=== PATIENT | male | born 1970 | race Caucasian/White ===

== ENCOUNTER 2025-05-05 01:15 | Observation (INO) | payer OTHER, SELFPAY ==
[2025-05-04] VITALS (14 sets, daily range): BP systolic 64–90; BP diastolic 43–58; BMI 30.2
--- NOTE | 2025-05-04 20:36 | EDRN ---
Pt was making a sandwich and passed out in the kitchen then heard his yell 'what are you doing on the floor and why is there blood on your chin?' Pt sustained laceration to L chin. Pt thinks he was 'out' for about 1 minute. Pt feels his
vision is a little blurred. No headache, n/v, fever/chills. Pt has a cough from cold he had last week. Pt has hx POTS but says he has never passed out completely. Pt says 'I feel fine.'
--- NOTE | 2025-05-04 20:49 | EDRN ---
Pt says he has never officially been diagnosed with POTS. Pt was treated for htn many years ago with medications. Pt has lost weight recently and expressed concern that pt may need his bp medication adjusted.
[2025-05-04 20:54] LABS: Hematocrit 39.8 % (39.0-52.0); Hemoglobin 13.3 g/dL (13.0-18.0); Mean Corp Hgb Conc. 33.4 g/dL (33.0-37.0); Mean Corpuscular Volume 88.4 fL (80.0-94.0); Nucleated Red Blood Cells % 0 % (-); Platelet Count 241 10^3/uL (130-400); Red Cell Dist. Width 12.4 % (11.5-14.5)
[2025-05-04] MEDS: NSS 1000 IV ×2 (20:54→21:51)
--- NOTE | 2025-05-04 20:57 | EDRN ---
Pt adds he drank a few beers tonight and smoked marijuana
--- NOTE | 2025-05-04 21:12 | ED.GENMED ---
History of Present Illness
<JOHN Boston - Last Filed: 05/04/25 23:30>
General
Chief Complaint: Fainting/Passed Out
Source: patient
Exam Limitations: none
Time Seen by Provider: 05/04/25 20:49
Nursing documentation reviewed up to this point in time: agreed with except (Patient with no formal diagnosis of POTS)
History of Present Illness
History of Present Illness:
54-year-old male with past medical history of hypertension hyperlipidemia diabetes presents to the ER for evaluation. Patient apparently had a syncopal episode and heard him fall and found him on the floor with a laceration to his chin.
Patient presents hypotensive. He reports that he has a history of hypertension however has lost a lot of weight over the past 6 to 9 months being on a GLP-1 (approx 40 lbs).
He also states that today he smoked marijuana and had several strong beers. He remembers standing at the refrigerator to try to get something to eat but does not recall feeling dizzy or lightheaded.
He denies headache now .
He does report recently he has noticed that when he bends over to get something he will feel lightheaded and dizzy.
He is on 4 blood pressure medicines including amlodipine, hydrochlorothiazide losartan spironolactone. He is a diabetic and takes Metformin. He admits to not eating today prior to drinking beer.
Phy Exam
<JOHN Boston - Last Filed: 05/04/25 23:30>
General Physical Exam
General Presentation: no apparent distress
General age: appears stated age
General Skin: warm and dry
General Habitus: normal
General Mental: alert
General Hydration: appears well hydrated
ENT Exam
ENT Exam: EOMI and other (Patient with 4 cm linear horizontally situated laceration thru to subcutaneous tissue)
Cardiovascular Exam
Cardiovascular Exam: no murmur and tachycardia
Pulmonary Exam
Pulmonary Exam: lungs clear and no respiratory distress
Neurological Exam
Neurological Exam: alert and oriented x3
Musculoskeletal Exam
Musculoskeletal Exam: full ROM
Skin Exam
Skin Exam: normal color and warm/dry
Psychiatric Exam
Psychiatric Exam: normal mood/affect
Course
<JOHN Boston - Last Filed: 05/04/25 23:30>
Orders/Labs/Results
Orders:
Orders
05/04/25 20:13
EKG [Electrocardiogram (*1)] Urgent
Reason for Study: Syncope
EKG- Treatment ONCE
05/04/25 20:46
Complete Blood Count/With Diff Urgent
Comprehensive Metabolic Panel Urgent
05/04/25 20:54
0.9% Sodium Chloride 1000 ml [Nss] 1,000 ml IV BOLUS
05/04/25 21:24
CT Cervical Spine W/o Iv Contr Urgent
Comment:
Reason For Exam: trauma
CT Head W/o Iv Contrast Urgent
Comment:
Reason For Exam: trauma
Tetanus/Diphth/Acelpertussis [Adacel] 0.5 ml IM .ONCE ONE
05/04/25 21:49
0.9% Sodium Chloride 1000 ml [Nss] 1,000 ml IV BOLUS
Abnormal Lab Results
05/04/25
20:46
RBC 4.50 L 10^6/uL
(4.70-6.10)
Absolute Monos (auto) 0.7 H 10^3/uL
(0.1-0.6)
BUN 24 H mg/dl
(9-20)
Creatinine 1.4 H mg/dL
(0.7-1.3)
Glucose 136 H mg/dl
(70-99)
05/04/25 20:46
05/04/25 20:46
Vital Signs
Initial and Last Documented VS:
Initial Vital Signs
Temp Pulse Resp BP Pulse Ox
98.5 F 106 16 64/43 97
05/04/25 20:20 05/04/25 20:20 05/04/25 20:20 05/04/25 20:20 05/04/25 20:20
Last Documented Vital Signs
Temp Pulse Resp BP Pulse Ox
98.5 F 101 22 82/54 92
05/04/25 20:20 05/04/25 22:30 05/04/25 22:30 05/04/25 22:30 05/04/25 22:15
Mainframe Programmer consulted with Physician
Mainframe Programmer consulted with physician?: Yes
Name of Physician Consulted: MONIE
<Dov Bunch MD - Last Filed: 05/04/25 23:34>
Orders/Labs/Results
Orders:
Orders
05/04/25 20:13
EKG [Electrocardiogram (*1)] Urgent
Reason for Study: Syncope
EKG- Treatment ONCE
05/04/25 20:46
Complete Blood Count/With Diff Urgent
Comprehensive Metabolic Panel Urgent
05/04/25 20:54
0.9% Sodium Chloride 1000 ml [Nss] 1,000 ml IV BOLUS
05/04/25 21:24
CT Cervical Spine W/o Iv Contr Urgent
Comment:
Reason For Exam: trauma
CT Head W/o Iv Contrast Urgent
Comment:
Reason For Exam: trauma
Tetanus/Diphth/Acelpertussis [Adacel] 0.5 ml IM .ONCE ONE
05/04/25 21:49
0.9% Sodium Chloride 1000 ml [Nss] 1,000 ml IV BOLUS
Abnormal Lab Results
05/04/25
20:46
RBC 4.50 L 10^6/uL
(4.70-6.10)
Absolute Monos (auto) 0.7 H 10^3/uL
(0.1-0.6)
BUN 24 H mg/dl
(9-20)
Creatinine 1.4 H mg/dL
(0.7-1.3)
Glucose 136 H mg/dl
(70-99)
05/04/25 20:46
05/04/25 20:46
Vital Signs
Initial and Last Documented VS:
Initial Vital Signs
Temp Pulse Resp BP Pulse Ox
98.5 F 106 16 64/43 97
05/04/25 20:20 05/04/25 20:20 05/04/25 20:20 05/04/25 20:20 05/04/25 20:20
Last Documented Vital Signs
Temp Pulse Resp BP Pulse Ox
98.5 F 101 22 82/54 92
05/04/25 20:20 05/04/25 22:30 05/04/25 22:30 05/04/25 22:30 05/04/25 22:15
Procedures
<JOHN Boston - Last Filed: 05/04/25 23:30>
Laceration Closure
Chin:
Status of Wound: clean
Size of Wound in cm: 4
Description of Wound Edges: sharp
Preparation: cleaned with saline
Anesthesia: 1% Lidocaine with epi
Type of Closure: single layer closure and interrupted sutures
Skin Closure Material: 6-0 nylon
Number of sutures: 7
<JOHN Boston - Last Filed: 05/04/25 23:30>
MDM/Problems Addressed
Differential Diagnosis Includes:
Not limited to syncope hypotension,dehydration electrolyte abnormality laceration
MDM/Problems Addressed:
As documented patient a 54-year male who presented for syncope. Patient has had recent issues of dizziness with changing position. Triage note mentions POTS however patient has no formal diagnosis of POTS. He has noted that he has lost at least
40 pounds over the past 6 months from taking a GLP-1 and had hypertension prior to taking medication. He is still on his hypertension medicine and has noticed increasing dizziness recently. Today however he noted that he did drink several beers
and smoked marijuana while staying in front of the refrigerator did not feel dizzy however had a syncopal episode. This was heard by his who found him on the floor bleeding from the chin. He presented hypotensive in the 60s however awake
alert. Patient was given 2 L of fluid continues to remain hypotensive in the 80s however not toxic appearing. He denies any chest pain he is dry. His white count is normal his BUN/creatinine are 20/1.4.
Patient's head CT and cervical spine are negative.
Patient sustained a full-thickness horizontal LAC to the chin which I did repair. Case discussed with Dr. Bunch will admit for further observation fluids
Chronic conditions affecting care:
htn niddm)recently lost approx 4lbs
<JOHN Boston - Last Filed: 05/04/25 23:30>
*Radiology
Radiology exam reviewed: radiology read reviewed
*Pulse Oximetry
SaO2: 97
Oxygen Mode of Delivery: Room air
Patient hypoxic: no
*Critical Care Note
Total Time (30-74mins, 75-104mins- exclusive of procedures): Not Applicable
ED Attending Note
<JOHN Boston - Last Filed: 05/04/25 23:30>
-
Portions of this chart may have been created with voice recognition software.� Occasional wrong word or��sound alike� substitutions may have occurred due to the inherent limitations of voice recognition software.
<Dov Bunch MD - Last Filed: 05/04/25 23:34>
ED Attending Note
Patient seen and examined by attending physician: Yes
ED Attending Note:
Patient with hx of POTS, presents to the ED after syncopal episode in the kitchen this afternoon. Patient states that he had significant amount alcohol consumption, without water or food today, more alcohol than he usually drinks. When he woke up
on the floor, there was blood coming down from his chin. Patient denies headache. Denies neck pain. Denies dizziness. Denies loss of sensation or weakness. Patient does not take any blood thinning medications. Denies recent illness. Denies
recent change in medications or diet. Upon arrival, patient is found to be significantly hypotensive.
Physical Exam
General: mild distress, not acutely ill. afebrile. hypotensive
Head: nc/at.
Neck: supple. normal range of motion.
Heart: s1/s2 regular rate and rhythm
Lungs: no acute respiratory distress. clear bilaterally
Abdomen: normal bowel sounds. not tender.
Neuro: alert and oriented x 3. no focal neurological deficits
Skin: an approx 4cm linear, superficial laceration under chin, without pulsatile bleeding
Psychiatric: well kept. interactive and cooperative
Extremities: no edema. no calf tenderness.
History and exam consistent with syncope, likely secondary to severe hypotension from acute alcohol intoxication. As patient remains hypotensive, despite 2 L IV fluid bolus, patient will be admitted for further evaluation and treatment, including
continued hydration. Wound well-approximated with placement of sutures, which will need to be removed by his PCP upon discharge from the hospital.
Discharge Plan
Departure
Patient Disposition: Admit
Date of Disposition: 05/04/25
Time of Disposition: 23:26
Admit to: Telemetry
Admit to doctor: hospitalit
Presentation/result/management discussed w/ accepting MD/DO: Hospitalist
Patient with high blood pressure during this ER visit?: No
Condition: Fair
Covid-19: Not Applicable
Discharge Problem:
Syncope, Acute hypotension, Chin laceration
Prescriptions:
No Action
metformin 500 mg Tablet
500 mg PO BID
atorvastatin 20 mg Tablet
20 mg PO DAILY
chlorthalidone 25 mg Tablet
25 mg PO DAILY
amlodipine 5 mg Tablet
5 mg PO DAILY
spironolactone 25 mg Tablet
25 mg PO DAILY
levothyroxine 50 mcg Tablet
50 mcg PO DAILY
losartan 100 mg Tablet
100 mg PO DAILY
escitalopram oxalate 5 mg Tablet
5 mg PO DAILY
hydrochlorothiazide 12.5 mg Tablet
12.5 mg PO DAILY
Jardiance 25 mg Tablet
25 mg PO DAILY
Mounjaro 10 mg/0.5 mL Pen Injector
10 mg SC QWEEK
Referrals:
Chapito Church MD [Family Provider, Internal Medicine]
Interventions
Interventions:
*Risk Screen - Suicide Last Done: 05/04/25 20:20
*General Assessment Last Done: 05/04/25 20:20
*Neglect/Abuse Screening Last Done: 05/04/25 20:20
*ED- Fall Risk Assessment Last Done: 05/04/25 20:20
*ED COVID-19 Vaccine History Last Done: 05/04/25 20:20
ED- Cardiac Assessment Last Done: 05/04/25 20:47
ED- Neurological Assessment Last Done: 05/04/25 20:47
Discharge Date and Time
Print Language: VIET[place]ESE
[2025-05-04 21:20] LABS: ALT (SGPT) 31 U/L (0-50); AST (SGOT) 31 U/L (17-59); Albumin 4.1 g/dl (3.5-5.0); Alkaline Phosphatase 53 U/L (38-126); Blood Urea Nitrogen 24 mg/dl (9-20); Calcium 9.6 mg/dl (8.4-10.2); Carbon Dioxide 22 mmol/L (22-30); Chloride 100 mmol/L (98-107); Estimated Creatinine Clearance 57 ml/min; Glucose 136 mg/dl (70-99); Potassium 3.6 mmol/L (3.5-5.1); Sodium 136 mmol/L (135-145); Total Protein 6.6 g/dl (6.3-8.2); eGFR 58.99
[2025-05-04] MEDS: ADACEL 0.5 ML IM (21:32)
[2025-05-05] VITALS (11 sets, daily range): BP systolic 75–151; BP diastolic 51–88; PULSE 93–104; BMI 29.9
--- NOTE | 2025-05-05 00:53 | HPS.HSE ---
Family Physician
-
Family Physician: Chapito Church
Chief Complaint
-
Syncopal episode
History of Present Illness
This is a 54-year-old male with past medical history significant for diabetes, hypertension, hyperlipidemia, obesity who presents to the emergency department following a syncopal episode at home.
Patient reports that he has been having symptoms of dizziness for the last 9 months which she describes as nonvertiginous. Appears to be associated with standing up. He reported that he had a presyncopal episode and fell about 2 weeks ago. He
denies loss of consciousness at that time. He continued to have dizzy dizzy spells and reported that when he got up this morning he did feel dizzy standing and walking. Later on in the day while standing against his refrigerator he collapsed to
the floor. He had a brief period of loss of consciousness but when his came to see him he was able to respond appropriately. She did not notice any shaking, incontinence of the bladder or bowel. He did self a laceration to his chin. He
denies any other prior episodes of syncope.
He did say he drank 3 glasses of beer yesterday prior to this event which is more than his usual amount.. He denied any abdominal pain nausea or vomiting. He states he otherwise he drinks only occasionally.
Patient reported that is lost about 40 pounds since has been placed on Mounjaro 1 year ago. He started having these dizzy episodes 9 months ago. He has discussed this with his physician and he tells me that they have reduced 100 doses of his blood
pressure medications. He denies any recent diarrhea, nausea or vomiting. He denies having any chest pain. He denies palpitations. He states that in the past he has had a Holter monitor several years ago which did not measure any abnormality.
Patient denies any focal numbness weakness or paresthesias.
In the emergency department he has been afebrile, blood pressure has been on the low side in the 80s over 50s with a pulse in the 110s. He had a CT of the head which showed no acute interval changes. He had a CT C-spine which is also unremarkable.
ECG shows a normal sinus rhythm at a rate of 93 with left anterior fascicular block and unchanged from prior. CBC was unremarkable. Electrolytes BUN and creatinine with stable with a creatinine of 1.4.
Medical History
Past Medical History
Past Medical History: Reports HTN, Hypercholesterolemia, NIDDM and Other (Obesity)
Past Surgical History: Reports Other (Hernia repair)
Social History
Tobacco: Non-smoker
Alcohol: Occasional
Drug: Marijuana
Personal:
Living: With Family
Family History
Family History: Not pertinent
Allergies / Home Medications
Allergies reflects when Allergies were last updated in [employer].
Home Medications with original date entered in [employer]
Allergy/Medication List:
Allergies
Allergy/AdvReac Type Severity Reaction Status Date / Time
No Known Allergies Allergy Unverified 05/04/25 20:20
Home Medications
amlodipine 5 mg tablet 5 mg PO DAILY 05/04/25
atorvastatin 20 mg tablet 20 mg PO DAILY 05/04/25
chlorthalidone 25 mg tablet 25 mg PO DAILY 05/04/25
empagliflozin 25 mg tablet (Jardiance) 25 mg PO DAILY 05/04/25
escitalopram oxalate 5 mg tablet 5 mg PO DAILY 05/04/25
hydrochlorothiazide 12.5 mg tablet 12.5 mg PO DAILY 05/04/25
levothyroxine 50 mcg tablet 50 mcg PO DAILY 05/04/25
losartan 100 mg tablet 100 mg PO DAILY 05/04/25
metformin 500 mg tablet 500 mg PO BID 05/04/25
spironolactone 25 mg tablet 25 mg PO DAILY 05/04/25
tirzepatide 10 mg/0.5 mL subcutaneous pen injector (Mounjaro) 10 mg SC QWEEK 05/04/25
Review of Systems
-
Constitutional: Reports No Symptoms
EENT: Reports No Symptoms
Respiratory: Reports No Symptoms
Cardiac: Reports No Symptoms
Abdomen/GI: Reports No Symptoms
: Reports No Symptoms
Musculoskeletal: Reports No Symptoms
Skin: Reports No Symptoms
Neurological: Reports Dizzy
Endocrine: Reports No Symptoms
Hematologic/Lymphatic: Reports No Symptoms
Psych: Reports No Symptoms
Physical Exam
Vital Signs
Vital Signs
Temp Pulse Resp BP Pulse Ox
98.5 F 104 21 87/52 97
05/04/25 20:20 05/05/25 00:00 05/05/25 00:00 05/05/25 00:00 05/04/25 23:30
Physical Exam
General: Well Developed, Well Nourished and No Apparent Distress
HEENT: NormoCephalic, Moist mucous membranes and Atraumatic
Respiratory: Clear
Cardiac: S1/S2 and Regular Rhythm; No Murmur or Rub
GI: Soft, Non Tender, Non Distended and Normal Bowel Sounds; No Organomegaly
Rectal: Deferred by Provider
Musculoskeletal: No Clubbing, No Cyanosis and No Edema
Skin: No Rash
Neuro: AO x 3 and Nonfocal/grossly intact
Hematologic/Lymphatic: No Lymphadenopathy
Psych: Calm
Laboratory Results
-
05/04/25 20:46
05/04/25 20:46
Laboratory Results
Total Bilirubin 0.6 mg/dl (0.2-1.3) 05/04/25 20:46
AST 31 U/L (17-59) 05/04/25 20:46
ALT 31 U/L (0-50) 05/04/25 20:46
Alkaline Phosphatase 53 U/L (38-126) 05/04/25 20:46
Data Reviewed
-
Diagnostic Radiology: Report Reviewed by me
CT Scan: Report Reviewed by me
Lab Data: Labs Reviewed by me
Impression/Plan
-
IMPRESSION:
54-year-old with syncopal episode in the setting of several weeks of orthostatic dizziness, remains relatively hypotensive with SBP's in the 80s and 90s in the ED. Patient's ECG is nonischemic and shows no arrhythmia. Troponin was not obtained.
CT of the head and C-spine were negative. Suspect patient is having orthostatic symptoms due to antihypertensive medications in the setting of significant weight loss on Mounjaro. He has no signs of an acute infection. Unlikely this is secondary
to renal insufficiency. He has no respiratory symptoms. He has no chest pain or any other signs of cardiac ischemia.
PLAN:
Hypotension/syncope -suspect syncope secondary to hypotension rather than a cardiac event and this is likely secondary to antihypertensives and possibly some dehydration
-Admit to telemetry obs
-IV fluids
-Hold antihypertensives for now (amlodipine, chlorthalidone +?hctz, spironolactone and losartan)
-Check a.m. cortisol, check TSH
-Echocardiogram
-Will continue IV fluids
- Orthostatic vital signs
Diabetes
-Will continue metformin for now
-Sliding scale insulin
DVT prophylaxis�Lovenox subcu
CODE STATUS�full code
[2025-05-05 03:39] LABS: Lipase 186 U/L (23-300)
[2025-05-05 03:53] LABS: Glucose - Point of Care 114 mg/dl (70-99)
[2025-05-05] MEDS: NSS 1000 IV (03:53)
[2025-05-05] MEDS: SYNTHROID 50 MCG PO (05:48)
[2025-05-05 07:20] LABS: Glucose - Point of Care 104 mg/dl (70-99)
[2025-05-05 07:30] LABS: Blood Urea Nitrogen 23 mg/dl (9-20); Calcium 9.3 mg/dl (8.4-10.2); Carbon Dioxide 30 mmol/L (22-30); Chloride 105 mmol/L (98-107); Estimated Creatinine Clearance 90 ml/min; Glucose 95 mg/dl (70-99); HDL Cholesterol 60 mg/dl; LDL Cholesterol, Calculated 30 mg/dl; Magnesium 1.9 mg/dl (1.6-2.3); Potassium 3.9 mmol/L (3.5-5.1); Sodium 140 mmol/L (135-145); Very Low Density Lipoprotein 10 mg/dl (0-30); eGFR > 60.00
--- NOTE | 2025-05-05 07:33 | PTCARENOTE ---
Patient arrived on unit @0378
--- NOTE | 2025-05-05 07:34 | PTCARENOTE ---
Patient arrived on unit @0315 via stretcher from ED. Patient AAOx3, c/o headache with pain level 2/10. Patient refused bed alarm when educated due to recent falls at home. Skin assessment completed, oriented to unit, call cohen within reach.
[2025-05-05 07:43] LABS: Troponin I 0.013 ng/ml
[2025-05-05 07:59] LABS: TSH 0.30 uIU/ml (0.47-4.68)
[2025-05-05] MEDS: GLUCOPHAGE 500 MG PO (08:49)
[2025-05-05] MEDS: LEXAPRO 5 MG PO (08:49)
[2025-05-05] MEDS: FARXIGA 10 MG PO (08:49)
[2025-05-05 09:02] LABS: Glycohemoglobin (HgbA1c) 5.6 % (4.0-5.6)
--- NOTE | 2025-05-05 09:51 | PTCARENOTE ---
Pt refused bed alarm. No lightheadedness or dizziness upon standing. Pt ringing appropriately for bathroom needs.
--- NOTE | 2025-05-05 10:12 | W.DS.TRANS ---
DC Summary - [place] [employer]
-
Discharge Instructions:
Discharge Diagnosis/Procedures Orthostatic hypotension, syncope.
Dehydration with MATIAS
Diet Diabetic, Carb Controlled
Instructions:
Stand-Alone Forms:
Changes to Home Medications: Yes
Discharge Medications:
DC Medications w/original date entered in [employer]
atorvastatin 20 mg tablet 20 mg PO DAILY 05/04/25
empagliflozin 25 mg tablet (Jardiance) 25 mg PO DAILY 05/04/25
escitalopram oxalate 5 mg tablet 5 mg PO DAILY 05/04/25
levothyroxine 50 mcg tablet 50 mcg PO DAILY 05/04/25
losartan 100 mg tablet 100 mg PO DAILY 05/04/25
metformin 500 mg tablet 500 mg PO BID 05/04/25
tirzepatide 10 mg/0.5 mL subcutaneous pen injector (Mounjaro) 10 mg SC QWEEK 05/04/25
Home Medication Changes
Stopped Amlodipine, Chlorthalidone, HCTZ, Spironolactone
Pending Results: No
[2025-05-05 10:47] LABS: Urine Character Clear (Clear)
[2025-05-05 10:57] LABS: Cortisol, Random 12.2 ug/dl
--- NOTE | 2025-05-05 11:05 | CM ---
Patient seen at bedside
IA completed
patient dicharged today
OBS status-form signed In chart
Lives with 2 story home, 2 [employer] flight to bed/bath
PLOF: independent
denies DME
Denies VN/REHAB
PCP: Chapito Church
Pharmacy: [facility]
plan: Home no needs
to transport
[2025-05-05 11:24] LABS: Glucose - Point of Care 190 mg/dl (70-99)
== END 2025-05-05 12:15 | disposition home or self-care (01) ==
LOC: 3 WEST ACU 01:15
PROVIDERS: ADMITTING PHYSICIAN Internal Medicine; ATTENDING PHYSICIAN Internal Medicine; EMERGENCY PHYSICIAN Emergency Medicine; FAMILY PHYSICIAN Internal Medicine
DX: I95.1 Orthostatic hypotension (principal); I10 Essential (primary) hypertension; E11.9 Type 2 diabetes mellitus without complications; E78.5 Hyperlipidemia, unspecified; R42 Dizziness and giddiness; R29.6 Repeated falls; I44.4 Left anterior fascicular block; E78.00 Pure hypercholesterolemia, unspecified; E66.9 Obesity, unspecified; M50.322 Other cervical disc degeneration at C5-C6 level; M47.812 Spondylosis without myelopathy or radiculopathy, cervical region; N17.9 Acute kidney failure, unspecified; E86.0 Dehydration; S01.81XA Laceration without foreign body of other part of head, initial encounter; W18.39XA Other fall on same level, initial encounter; Y93.89 Activity, other specified; Y92.000 Kitchen of unspecified non-institutional (private) residence as the place of occurrence of the external cause; F10.129 Alcohol abuse with intoxication, unspecified; F12.90 Cannabis use, unspecified, uncomplicated; I95.9 Hypotension, unspecified; Z79.84 Long term (current) use of oral hypoglycemic drugs; Z23 Encounter for immunization; Z91.81 History of falling; Z68.29 Body mass index [BMI] 29.0-29.9, adult; Z79.890 Hormone replacement therapy; Z79.85 Long-term (current) use of injectable non-insulin antidiabetic drugs
CPT/HCPCS: 12013; 70450; 72125; 80048; 80053; 80061; 81003; 82077; 82533; 82550; 82962; 83036; 83690; 83735; 84443; 84484; 85025; 90471; 90715; 93005; 93306; 96361; 99285; G0378